=== PATIENT | male | born 1970 | race Caucasian/White ===

== ENCOUNTER → 2017-10-08 16:58 | Outpatient (CLI) | payer MEDICAID, SELFPAY ==
[2017-10-08 18:37] LABS: Absolute Lymphocyte Count 2.45 X10^3/ul (0.83-4.51); Basophil# 0.02 X10^3/uL; Basophil% 0.2 % (0-1); Eosinophil# 0.11 X10^3/uL; Eosinophils% 1.2 % (0-5); Hematocrit 45.6 % (40-54); Hemoglobin 15.4 g/dl (13.0-16.5); Lymphocyte # 2.45 X10^3/ul (4.0); Lymphocyte % 26.3 % (19-41); Mean Corp Hgb Conc 33.8 g/gl (32-36); Mean Corpuscular Hgb 29.7 pg (27.0-32.0); Mean Corpuscular Volume 87.9 fL (80-94); Mean Platelet Vol. 10.5 fl (6.2-12.0); Monocyte# 0.75 X10^3/uL; Monocyte% 8.1 % (0-10); Neutrophil # 5.97 X10^3/uL (2.7-7.7); Neutrophil % 64.1 % (47-70); POSITIVE COUNT NO; POSITIVE DIFFERENTIAL NO; POSITIVE MORPHOLOGY NO; Platelet Count 324 K/mm3 (150-450); RBC Distribution Width CV 13.1 % (11.6-14.6); RBC Distribution Width SD 42.2 fl (35.1-43.9); Red Blood Count 5.19 M/mm3 (4.6-6.2); White Blood Count 9.3 K/mm3 (4.4-11.0)
[2017-10-08 19:11] LABS: ALB/GLOB Ratio 1.1 RATIO (0.9-2.4); AST(SGOT) 22 U/L (15-37); Alanine Aminotransfer ALT/SGPT 43 U/L (16-61); Albumin, Serum 4.1 g/dL (3.2-5.0); Alkaline Phosphatase 92 U/L (45-117); Anion Gap 7 (5-15); BUN 11 mg/dL (7-18); BUN/Creat Ratio 13.8 RATIO (10-20); Calcium,Total 9.3 mg/dL (8.5-10.1); Chloride 101 mmol/L (98-107); EST Glomerular Filtration Rate 111 mL/min (>60); Est Glom Filt Rate - Afr Amer 134 mL/min (>60); Globulin 3.7 g/dL (2.2-4.2); Glucose 83 mg/dL (74-106); Potassium 4.4 mmol/L (3.5-5.1); Protein, Total 7.8 g/dL (6.4-8.2); Sodium Level 139 mmol/L (136-145)
[2017-10-10 09:00] LABS: Hep C Antibodies <0.1 s/co ratio (0.0-0.9)
== END ==
PROVIDERS: Family Provider Family Medicine; PCP Family Medicine; Visit Provider Family Medicine
DX: M13.0 Polyarthritis, unspecified (principal)
CPT/HCPCS: 36415; 80053; 85025; 86803

== ENCOUNTER 2018-09-29 09:39 | Emergency (ER) | payer OTHER, BC, SELFPAY ==
[2018-09-29 09:39] VITALS: BP 143/88; PULSE 86; RESP 14; TEMP 36.6; O2SAT 96; BMI 48.0
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
--- NOTE | 2018-09-29 09:58 | ED.DEP ---
ED Disposition - Plan for ED Patient: Disposition: Home or Assisted Living Instructions: Dental Trauma Prescriptions: Penicillin Vk [Pen-Vee K , V-Cillin K] 250 mg PO 4X/DAY #30 tab Referrals: Giuseppe Banuelos DDS [STAFF PHYSICIAN] - As soon as possible Additional Instructions: Ice for pain and inflammation. Tylenol Motrin for pain. Penicillin to prevent infection. Call follow-up with either the local oral surgeon Dr. Giuseppe Banuelos or Dr. Isidro Burgos a local dentist. Dr. Burgos [phone].
[2018-09-29 10:14] VITALS: PULSE 86; RESP 17; O2SAT 98
== END 2018-09-29 11:17 | disposition home or self-care (01) ==
PROVIDERS: Emergency Provider Emergency Medicine; Family Provider Family Medicine; PCP Family Medicine
DX: S02.5XXA Fracture of tooth (traumatic), initial encounter for closed fracture (principal); W01.198A Fall on same level from slipping, tripping and stumbling with subsequent striking against other object, initial encounter; Y93.89 Activity, other specified; Y92.89 Other specified places as the place of occurrence of the external cause; Y99.0 Civilian activity done for income or pay
CPT/HCPCS: 99283

== ENCOUNTER 2018-11-14 20:05 | Emergency (ER) | payer BC, SELFPAY ==
[2018-11-14 20:05] VITALS: BP 154/86; PULSE 114; RESP 18; TEMP 37.1; O2SAT 95; BMI 49.2
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
[2018-11-14 23:08] VITALS: BP 137/93; PULSE 121; O2SAT 94
[2018-11-14] MEDS: predniSONE 20 MG Tablet 60 MG PO (23:11)
== END 2018-11-14 23:14 | disposition home or self-care (01) ==
PROVIDERS: Emergency Provider Emergency Medicine; Family Provider Family Medicine; PCP Family Medicine
DX: L50.9 Urticaria, unspecified (principal)
CPT/HCPCS: 99283

== ENCOUNTER 2020-12-23 08:02 | Emergency (ER) | payer SELFPAY ==
[2020-12-23 08:03] VITALS: BP 194/108; PULSE 94; RESP 22; TEMP 36.2; O2SAT 96; BMI 54.7
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
[2020-12-23] MEDS: Acetaminophen 500 MG Tablet 1000 MG PO (08:24)
[2020-12-23] MEDS: Diphth,Pertuss(Acell),Tet Vac 0.5 ML Vial IM (08:25)
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
[2020-12-23 09:21] VITALS: PULSE 98; RESP 18; O2SAT 97
== END 2020-12-23 09:22 | disposition home or self-care (01) ==
LOC: ED 08:56
PROVIDERS: Emergency Provider Emergency Medicine; PCP Family Medicine
DX: S06.0X0A Concussion without loss of consciousness, initial encounter (principal); S90.02XA Contusion of left ankle, initial encounter; S81.811A Laceration without foreign body, right lower leg, initial encounter; V29.88XA Motorcycle rider (driver) (passenger) injured in other specified transport accidents, initial encounter; Y93.89 Activity, other specified; Y92.89 Other specified places as the place of occurrence of the external cause; Y99.8 Other external cause status; Z79.1 Long term (current) use of non-steroidal anti-inflammatories (NSAID); Z23 Encounter for immunization
CPT/HCPCS: 70450; 73610; 90471; 90715; 99283

== ENCOUNTER → 2021-05-01 16:30 | Outpatient (CLI) | payer OTHER, SELFPAY ==
[2021-05-01 17:58] LABS: Absolute Lymphocyte Count 2.22 X10^3/uL (0.83-4.51); Absolute Neutrophil Count 7.6 X10^3/uL (2.0-7.7); Basophil# 0.06 X10^3/uL; Basophil% 0.6 % (0-1); Eosinophils% 0.9 % (0-5); Hematocrit 47.4 % (40-54); Hemoglobin 15.1 g/dL (13.0-16.5); Lymphocyte # 2.22 X10^3/ul (0.83-4.51); Lymphocyte % 20.7 % (19-41); Mean Corp Hgb Conc 31.9 g/dL (32-36); Mean Corpuscular Hgb 30.8 pg (27.0-32.0); Mean Corpuscular Volume 96.5 fL (80-94); Mean Platelet Vol. 10.8 fl (6.2-12.0); Monocyte# 0.67 X10^3/uL; Monocyte% 6.3 % (0-10); NRBC Flagged by Analyzer 0 % (0-5); Neutrophil # 7.62 X10^3/uL (2.7-7.7); Neutrophil % 71.1 % (47-70); Platelet Count 254 K/mm3 (150-450); RBC Distribution Width CV 14.4 % (11.6-14.6); RBC Distribution Width SD 50.4 fl (35.1-43.9); Red Blood Count 4.91 M/mm3 (4.6-6.2); White Blood Count 10.7 K/mm3 (4.4-11.0)
[2021-05-01 18:33] LABS: Microalbumin,Random Urine 10.9 mg/L (NO RANGE EST.); Microalbumin:Creatinine Ratio 6.4 mg/g CRE (<30 mg/g CRE)
[2021-05-01 18:38] LABS: ALB/GLOB Ratio 0.6 RATIO (0.9-2.4); AST(SGOT) 52 U/L (15-37); Alanine Aminotransfer ALT/SGPT 84 U/L (16-61); Albumin, Serum 3.1 g/dL (3.2-5.0); Alkaline Phosphatase 134 U/L (45-117); Anion Gap 5 (5-15); BUN 12 mg/dL (7-18); BUN/Creat Ratio 13.4 RATIO (10-20); Calcium,Total 9.4 mg/dL (8.5-10.1); Chloride 103 mmol/L (98-107); Creatinine, Serum 0.89 mg/dL (0.70-1.30); EST Glomerular Filtration Rate 96 mL/min (>60); Est Glom Filt Rate - Afr Amer 116 mL/min (>60); Globulin 4.9 g/dL (2.2-4.2); Glucose 87 mg/dL (74-106); Potassium 4.1 mmol/L (3.5-5.1); Sodium Level 136 mmol/L (136-145)
[2021-05-01 19:02] LABS: Hemoglobin A1c 5.5 % (3.8-5.6)
== END ==
LOC: MFPLAB 16:31
PROVIDERS: PCP Family Medicine; Referring Provider Family Medicine; Visit Provider Family Medicine
DX: I10 Essential (primary) hypertension (principal); I73.9 Peripheral vascular disease, unspecified; R73.01 Impaired fasting glucose
CPT/HCPCS: 36415; 80053; 82043; 82570; 83036; 85025

== ENCOUNTER 2022-01-27 08:16 | Emergency (ER) | payer BC, SELFPAY ==
[2022-01-27 08:17] VITALS: BP 177/97; PULSE 114; RESP 22; TEMP 36.6; O2SAT 95; BMI 54.1
[2022-01-27 08:29] VITALS: O2SAT 96
--- NOTE | 2022-01-27 09:11 | RAD_ITS ---
STUDY: X-RAY CHEST REASON FOR EXAM: Male, 51 years old. sob TECHNIQUE: Single AP portable view of the chest. COMPARISON: JANUARY 02, 2016 FINDINGS: The lungs are clear and expanded. There is no demonstrated pleural abnormality. Normal size heart. Normal mediastinum and rai. Normal visualized pulmonary arteries. Normal visualized aortic arch and descending thoracic aorta. Normal visualized thoracic spine. Normal visualized ribs, clavicles, and shoulders. There is no demonstrated abnormality of the visualized soft tissue structures of the upper abdomen. RAD/Chest 1 View (Portable) IMPRESSION: Normal x-ray examination of the chest. Electronically Signed: Álvaro Botello MD at 9:32 EDT ,
--- NOTE | 2022-01-27 09:18 | EDS_ITS ---
HPI History of Present Illness Chief Complaint: Shortness of Breath Narrative Narrative: 51-year-old male here with a chief complaint of shortness of breath. Past medical history significant for hypertension, polysubstance abuse including cocaine methamphetamine [facility] Medical History Lung abnormality Allergy/AdvReac Type Severity Reaction Status Date / Time Penicillins [PCN] Allergy Hives Verified 01/27/22 08:17 Social History Smoking Status: Never smoker EXAM Physical Exam Const Vital Signs: 01/27/22 08:17 01/27/22 08:29 Temperature 98 F Temperature Source Temporal Pulse Rate 114 H Respiratory Rate 22 H Respiratory Effort Non-Labored Respiratory Depth Normal Respiratory Pattern Normal Blood Pressure 177/97 H Blood Pressure Mean 123 Pulse Ox 95 Oxygen Delivery Method Room Air Room Air Discharge Plan Triage Chief Complaint: Shortness of Breath ED Provider: Hira Jain Dx/Rx/DC Orders Primary Care Provider: Chau Hyman Referrals: Chau Hyman MD [Primary Care Provider] -
--- NOTE | 2022-01-27 09:26 | EX.ED.VIS.UR ---
HPI HPI - URI History of Present Illness Chief Complaint: Shortness of Breath Informant: patient Onset/Context/Timing Onset: Weeks Context: Gradual Onset Timing: Continuous Current Severity: Mild Maximum Severity: Mild Associated Symptoms Associated Symptoms: Positive for Nasal Congestion and Productive Cough Narrative Narrative: 51-year-old male past medical history of obesity. Isolated URI symptoms, drainage, sore throat and earaches. Over the last 6 weeks. Initially they tried 2 different courses of antibiotics including a Z-Filiberto. He also has had bilateral ear tubes placed. He does not feel he is getting any better. He is wheezing. He does not smoke. Denies any fever. Denies any chest pain. He does have a cough of yellow sputum. No hemoptysis. Prior similar symptoms: Yes Recent Illness/Hospitalization: No ROS ROS ED ROS Narrative Cough. Sore throat. Earache. Nasal drainage. Review of Systems ROS Unobtainable: Denies due to encephalopathy Constitutional Constitutional ED: Denies chills or fever(s) Eyes Eyes: Denies blurry vision ENT ENT ED: Reports ear pain, rhinorrhea and sore throat Cardiovascular Cardiovascular: Denies chest pain or palpitations Respiratory/Chest Respiratory/Chest: Reports cough, dyspnea and sputum Gastrointestinal Gastrointestinal: Denies abdominal pain, constipation or diarrhea Genitourinary Genitourinary ED: Denies dysuria or hematuria Musculoskeletal Musculoskeletal: Denies arthralgias or back pain Integumentary Denies abscess or Abrasions Neurologic Neurologic: Denies headache(s) Psychiatric Psychiatric: Denies anxiety or depression Endocrine Endocrinology: Denies cold intolerance Hematologic/Lymphatic Hematologic/Lymphatic: Denies easy bleeding Allergic/Immunologic Allergic/Immunologic ED: Denies mouth swelling PFSH PFSH Medical History Lung abnormality Home Medications prednisone 20 mg tablet 40 mg PO DAILY 10 days #20 tabs 01/27/22 [Rx Last Taken Unknown] Allergy/AdvReac Type Severity Reaction Status Date / Time Penicillins [PCN] Allergy Hives Verified 01/27/22 08:17 Social History Smoking Status: Never smoker EXAM Physical Exam Narrative Exam Narrative: 51-year-old male no acute distress vital signs are stable afebrile. H EENT exam TMs appear to be erythematous and dull peers to be chronic. Canals are unremarkable. Posterior pharynx moist pink drainage. No exudate. No trouble swallowing. Neck nontender no lymphadenopathy. Lungs coarse bilaterally. Few scattered wheezes. No rales or rhonchi. Heart regular rhythm rate about 110 no murmur. Chest were nontender. Abdomen soft nontender. Obese. Moving all 4 extremities. Calves nontender no edema no cords neurologically is awake alert Const Vital Signs: 01/27/22 08:17 01/27/22 08:29 01/27/22 09:50 Temperature 98 F Temperature Source Temporal Pulse Rate 114 H 72 Respiratory Rate 22 H 18 Respiratory Effort Non-Labored Respiratory Depth Normal Respiratory Pattern Normal Normal Blood Pressure 177/97 H Blood Pressure Mean 123 Pulse Ox 95 Oxygen Delivery Method Room Air Room Air Positive well nourished, well developed and obese; Negative for cachectic or contractures General Appearance ED: well developed; Negative for cachectic or contractures Nutritional Appearance: obese; Negative for cachectic HEENT Reports moist mucous membranes; Denies dry mucous membranes normocephalic and atraumatic Face and Sinus: Negative for sinus tenderness or maxillary instability Mouth ED: No dry mucous membranes Mouth: No dry mucous membranes Throat: posterior oropharynx normal Eyes PERRL and EOMs intact bilaterally General Eye ED: Negative for pale conjunctiva or scleral icterus Neck no lymphadenopathy, supple, no meningeal signs and no JVD Resp normal respiratory effort and clear to auscultation bilaterally Effort and Inspection: Negative for retractions Auscultation: Negative for rales, rhonchi or wheezes Cardio Rate: tachycardic; Negative for regular rate Rhythm: regular rhythm GI non-tender, non-distended and no masses Inspection: Negative for abdominal distention Auscultation: normoactive bowel sounds Palpation: soft; Negative for tender, guarding, hepatomegaly or splenomegaly Back/Spine no CVA tenderness General Back: Negative for CVA tenderness Cervical Spine: Negative for cervical spine tenderness Thoracic Spine / Upper Back: Negative for thoracic spinal tenderness Lumbar Spine / Lower Back: Negative for lumbar spinal tenderness Sacrum: Negative for tenderness Extremity normal to inspection and full ROM General Extremety ED: Negative for cyanosis or tenderness General Extremity: Negative for cyanosis Neuro oriented x3 Sensorium / Orientation: alert, oriented to person, oriented to place and oriented to time Motor Exam: strength 5/5 throughout Psych mental status grossly normal Appearance: Negative for other Attitude: No agitated Mood & Affect: Negative for depressed Skin General Skin Exam: Negative for jaundice Lesions: no lesions Rashes: no rashes Trauma: Negative for abrasion MDM MDM MDM Narrative Medical decision making narrative: Gentleman with URI symptoms but has had this for 6 weeks. Has had at least 2 rounds of antibiotics. Recent ear tubes. He is wheezing. Chest x-ray and COVID test to be obtained. Patient be treated with aerosols and steroids. Repeat exam patient is doing well at 11:45 AM. I do not think he needs any further antibiotics he has been having the symptoms for about a month. This may be seasonal allergies. He is also already been on 2 courses of antibiotics. He will be placed on prednisone for 10 days and follow-up with his primary care physician. He already has inhalers at home. He is doing better after the aerosol treatment and steroids here. Lab Data Attestation: I reviewed the patient's lab results. Radiography Diagnostic Testing: Clinical Impression(s) from Imaging Studies Chest X-Ray 01/27/22 09:11 IMPRESSION: Normal x-ray examination of the chest. Electronically Signed: Álvaro Botello MD at 9:32 EDT Reading Location ID and State: [facility] / [place] , Service support , Discharge Plan Triage Chief Complaint: Shortness of Breath ED Provider: Hira Jain Dx/Rx/DC Orders Clinical Impression: Wheezing Instructions: ED Bronchitis with Wheezing (Adult) Prescriptions: New prednisone 20 mg tablet 40 mg PO DAILY 10 Days Qty: 20 0RF Primary Care Provider: Chau Hyman Referrals: Chau Hyman MD [Primary Care Provider] - 1-2 Weeks Activity Restrictions/Additional Instructions: Continue use your inhaler as needed. Daily prednisone for the next 10 days. Start tomorrow. You were given a dose here. Follow-up with your doctor in 1 to 2 weeks to ensure you are improving. Disposition Disposition: Home, Self Care
[2022-01-27] MEDS: predniSONE 20 MG Tablet 60 MG PO (09:42)
[2022-01-27] MEDS: Albuterol 2.5 MG/3 ML VIAL.NEB. INHALATION (09:45)
[2022-01-27] MEDS: Ipratropium/Albuterol Sulfate 3 ML AMPUL.NEB INHALATION (09:45)
[2022-01-27 09:50] VITALS: PULSE 72; RESP 18
--- NOTE | 2022-01-27 09:51 | CPS ---
wheezing in the neck, no wheezes in the lungs.
[2022-01-27 11:56] VITALS: PULSE 105; RESP 20; O2SAT 94
== END 2022-01-27 11:56 | disposition home or self-care (01) ==
PROVIDERS: Emergency Provider Emergency Medicine; PCP Family Medicine; Visit Provider Emergency Medicine
DX: R06.2 Wheezing (principal); R06.02 Shortness of breath; J02.9 Acute pharyngitis, unspecified; E66.9 Obesity, unspecified; R09.3 Abnormal sputum
CPT/HCPCS: 71045; 87428; 94640; 99283

== ENCOUNTER 2024-05-12 09:48 | Inpatient (IN) | payer SELFPAY ==
[2024-05-12] VITALS (9 sets, daily range): BP systolic 130–157; BP diastolic 77–106; PULSE 94–102; RESP 16–24; TEMP 36.7–36.8; O2SAT 93–98; BMI 49.5
--- NOTE | 2024-05-12 10:06 | RAD_ITS ---
STUDY: X-RAY CHEST REASON FOR EXAM: Male, 53 years old. Chest pain TECHNIQUE: PA and lateral views of the chest. COMPARISON: Comparison is made with prior study dated January 27, 2022. FINDINGS: EKG electrodes are seen. There is evidence of vascular congestion and CHF. There is no demonstrated pleural abnormality. There is mild cardiac enlargement. Normal mediastinum and rai. Normal visualized pulmonary arteries. There is atherosclerotic tortuosity of the aortic arch and descending thoracic aorta. Normal visualized thoracic spine. Normal visualized ribs, clavicles, and shoulders. There is no demonstrated abnormality of the visualized soft tissue structures of the upper abdomen. RAD/Chest PA and Lateral IMPRESSION: Mild cardiomegaly. History congestion and CHF. Electronically Signed: Frandy Taylor MD at 10:50 EDT ,
[2024-05-12] MEDS: Ipratropium/Albuterol Sulfate 3 ML AMPUL.NEB INHALATION (10:13)
--- NOTE | 2024-05-12 10:15 | EKG12_ITS ---
Test Reason : SOB Blood Pressure : / mmHG Vent. Rate : 099 BPM Atrial Rate : 099 BPM P-R Int : 156 ms QRS Dur : 152 ms QT Int : 406 ms P-R-T Axes : 025 070 001 degrees QTc Int : 521 ms Normal sinus rhythm Left bundle branch block Abnormal ECG Confirmed by BAKARI PRADO, ELSA ([id number]), staff editor LAYA BOOGIE ([id number]) on 05/13/2024 1:55:44 PM Referred By: Confirmed By:ELSA VILLEGAS MD
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
[2024-05-12 10:22] LABS: Absolute Lymphocyte Count 1.72 X10^3/uL (0.83-4.51); Absolute Neutrophil Count 9.5 X10^3/uL (2.0-7.7); Basophil# 0.08 X10^3/uL; Basophil% 0.7 % (0-1); Eosinophil# 0.19 X10^3/uL; Eosinophils% 1.6 % (0-5); Hematocrit 47.1 % (40-54); Lymphocyte # 1.72 X10^3/ul (0.83-4.51); Lymphocyte % 14.2 % (19-41); Mean Corp Hgb Conc 31.8 g/dL (32-36); Mean Corpuscular Hgb 29.9 pg (27.0-32.0); Mean Corpuscular Volume 93.8 fL (80-94); Mean Platelet Vol. 9.7 fl (6.2-12.0); Monocyte# 0.63 X10^3/uL; Monocyte% 5.2 % (0-10); NRBC Flagged by Analyzer 0 % (0-5); Neutrophil # 9.45 X10^3/uL (2.7-7.7); Platelet Count 372 K/mm3 (150-450); RBC Distribution Width CV 16.1 % (11.6-14.6); RBC Distribution Width SD 55.2 fl (35.1-43.9); Red Blood Count 5.02 M/mm3 (4.6-6.2); White Blood Count 12.1 K/mm3 (4.4-11.0)
[2024-05-12] MEDS: predniSONE 20 MG Tablet 60 MG PO (10:23)
[2024-05-12 10:34] LABS: Anion Gap 4 (5-15); BUN 8 mg/dL (7-18); BUN/Creat Ratio 8.8 RATIO (10-20); Calcium,Total 9.4 mg/dL (8.5-10.1); Chloride 104 mmol/L (98-107); EST Glomerular Filtration Rate 94 mL/min (>60); Est Glom Filt Rate - Afr Amer 114 mL/min (>60); Estimated Creatinine Clearance 146.23 ml/min; Glucose 139 mg/dL (74-106); Potassium 4.4 mmol/L (3.5-5.1); Sodium Level 137 mmol/L (136-145); Troponin-I HS (w/2H Reflex) 20 pg/mL (3.0-78.0)
--- NOTE | 2024-05-12 11:34 | PCM.HP.STD ---
HPI - General General Date of Admission: 05/12/24 Date of Service: 05/12/24 Chief Complaint: shortness of breath HPI Narrative VERONICA MONTE, is a 53 M with a PMH as outlined who presents via the ED on 05/12/2024 with a complaint of shortness of breath. Patient states he felt acutely short of breath. Shortness of breath was worsened by exacerbation and relieved by rest. He denied any orthopnea and still sleeps with only 1 pillow. He had an associated cough and a fever. He said his cough was productive and he coughed to the point where he vomited. He denied any chest pain, dizziness or lightheadedness, nausea or vomiting. 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 He denies any history of smoking has not been diagnosed with COPD or any heart issues. Review of systems otherwise negative. Vitals in the ED were BP of 139/99, NE of 99, RR of 18 and oxygen sats of 98% on room air. CBC showed Hb of 15, wbc of 12.1 and platelets of 372. CHemistry showed sodium of 137, potassium of 4.4 and bicarb of 29. Cr was 0.9. Initial troponin was 20. BNP was 788. EKG showed no acute ST changes and CXR showed mild cardiomegaly with vascular congestion and CHF. He has been admitted to be managed for acute exacerbation of heart failure with unknown EF. [facility] Medical History Lung abnormality Home Medications ?Medication ?Instructions ?Recorded ?Last Taken ?Type lisinopril 20 mg tablet 20 mg PO DAILY 05/12/24 Unknown History Allergy/AdvReac Type Severity Reaction Status Date / Time Penicillins (PCN) Allergy Hives Verified 05/12/24 09:49 Social History Smoking Status: Never smoker ROS Constitutional Constitutional: Reports chills, fatigue, fever(s), malaise and weakness; Denies anorexia Eyes Eyes: Denies change in vision ENT HEENT: Denies dysphagia, headache(s), sinus pressure or sore throat Cardiovascular Cardiovascular: Reports dyspnea on exertion and orthopnea; Denies chest pain, claudication, edema, lightheadedness or palpitations Respiratory/Chest Respiratory/Chest: Reports cough, dyspnea, productive cough, shortness of breath at rest and shortness of breath with exertion; Denies excessive phlegm production, hemoptysis or wheezing Gastrointestinal Gastrointestinal: Denies abdominal pain, constipation, diarrhea, dyspepsia, melena, nausea or vomiting Genitourinary Genitourinary: Denies burning urination or dysuria Musculoskeletal Musculoskeletal: Denies arthralgias Neurologic Neurologic: Denies confusion, dizziness, focal weakness, headache(s), numbness, seizures or syncope Psychiatric Psychiatric: Denies anxiety or depression Vital Signs Vital Signs Vital Signs: 05/12/24 09:49 05/12/24 10:07 05/12/24 10:15 Temperature 98.3 F Temperature Source Oral Pulse Rate 101 H 95 Respiratory Rate 24 H 16 Respiratory Effort Respiratory Depth Respiratory Pattern Normal Blood Pressure 157/106 H Blood Pressure Mean 123 Pulse Ox 96 Oxygen Delivery Method Room Air Room Air 05/12/24 10:49 05/12/24 10:50 05/12/24 11:00 Temperature Temperature Source Pulse Rate 102 H 99 Respiratory Rate 20 H 18 Respiratory Effort Short of Breath Respiratory Depth Normal Respiratory Pattern Tachypnea Blood Pressure 145/88 H 139/99 H Blood Pressure Mean 107 112 Pulse Ox 95 98 Oxygen Delivery Method Room Air Room Air Weight Weight: 345 lb 6.4 oz Body Mass Index (BMI) 49.5 Physical Exam Const alert, oriented x3 and no apparent distress General Appearance: cooperative HEENT normocephalic, head/scalp atraumatic, hearing grossly normal bilaterally and moist oral mucous membranes Mouth: oral and palatal mucosa normal Eyes PERRL, EOMs intact bilaterally and conjunctivae normal Neck no lymphadenopathy and supple Resp Resp Narrative: Moderately diminished breath sounds bibasilarly. No wheezes or crackles. On room air. Cardio regular rate, regular rhythm, S1 normal heart sound, S2 normal heart sound and no murmurs GI normal to inspection, nondistended, normoactive bowel sounds, soft to palpation, non-tender and non-distended Extremity normal to inspection, full ROM and no clubbing, cyanosis or edema Neuro oriented x3, CN's II-XII intact bilaterally, moves all extremities and no focal motor deficits Sensorium / Orientation: awake and alert Motor Exam: strength 5/5 throughout Psych affect normal Results Lab / Micro Data 05/12/24 10:05 05/12/24 10:05 Labs: Laboratory Results - last 24 hr 05/12/24 10:05: WBC 12.1 H, RBC 5.02, Hgb 15.0, Hct 47.1, MCV 93.8, MCH 29.9, MCHC 31.8 L, RDW Std Deviation 55.2 H, RDW Coeff of Sean 16.1 H, Plt Count 372, MPV 9.7, Immature Gran % (Auto) 0.300, Neut % (Auto) 78.0 H, Lymph % (Auto) 14.2 L, [place] % (Auto) 5.2, Eos % (Auto) 1.6, Baso % (Auto) 0.7, Absolute Neuts (auto) 9.5 H, Absolute Lymphs (auto) 1.72, Nucleated RBC % 0, Sodium 137, Potassium 4.4, Chloride 104, Carbon Dioxide 29.0, Anion Gap 4 L, BUN 8, Creatinine 0.90, Estim Creat Clear Calc 146.23, Est GFR (MDRD) Af Amer 114, Est GFR (MDRD) Non-Af 94, BUN/Creatinine Ratio 8.8 L, Glucose 139 H, Calcium 9.4, Troponin I High Sens 20, B-Natriuretic Peptide 788.0 H Micro: Microbiology 05/12/24 10:13 Mucosa - Nose SARS-CoV-2, Influenza & RSV (PCR) - Final Imaging Radiology Impression Chest X-Ray 05/12/24 10:06 IMPRESSION: Mild cardiomegaly. History congestion and CHF. Electronically Signed: Frandy Taylor MD at 10:50 EDT , Assessment & Plan Assessment/Plan (1) Dyspnea on exertion: (2) Congestive heart failure: PLAN: Plan #Acute heart failure of unknown EF Admit to PCU Chest x-ray showed evidence of vascular congestion. BNP elevated at 788. No baseline in the system. He does not have any known heart failure. Troponins x 2 were negative. Start diuresis with IV Lasix 40 mg twice daily. Monitor intake and output. Fluid restriction 1500 cc daily. Respiratory panel negative for COVID, flu and RSV Oxygen as needed and titrate to maintain saturation above 90%. 2D echo ordered. #Probable pneumonia Patient also complains that he had a fever at home with associated cough productive of sputum. He did not have a fever whilst here but WBC is mildly elevated at 12.1. Will check urine for strep and Legionella. Get sputum culture. He was given IV doxycycline in the ED. Will continue antibiotics with IV ceftriaxone and azithromycin. Breathing treatments bronchodilators. #Super morbid obesity: BMI is 49.1. Complicates acute care, expected recovery and prognosis. 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 Will benefit from pulmonology referral on outpatient basis on discharge. DVT prophylaxis: Lovenox CODE STATUS: Full code Patient counseled extensively about different types of CODE STATUS including full code, DNR CCA and DNR CCA. Patient elects to be full code. Total [id number] time 17 minutes. Charges/Coding Visit Charges Inpatient E&M: 93909 Init Hosp L3 Procedures Hospitalists Procedures: 77528 Advncd Care Plan 30 Min
[2024-05-12] MEDS: Furosemide 40 MG/4 ML Vial IV ×2 (11:46→17:41)
[2024-05-12] MEDS: Doxycycline 100 MG CAPSULE PO (11:46)
[2024-05-12 12:13] LABS: Reflex Troponin-HS? (from REC) Y
--- NOTE | 2024-05-12 12:49 | ECHOD_ITS ---
Reason For Study: DYSPNEA Procedure This was a 2D Doppler, Color Flow transthoracic echocardiogram. The study was technically difficult. Contrast injection was performed. Exam performed portable in patient room. Left Ventricle Mildly dilated left ventricle. The estimated ejection fraction is 35 %. There is evidence of diastolic dysfunction. Base of the LV is lauren well. Rest of the LV is severely hypokinetic to akinetic. Right Ventricle Normal RV size. Normal systolic function. Atria The left atrium is not well visualized. The right atrium is not well visualized. No doppler evidence for ASD. Mitral Valve There is no mitral valve stenosis. No mitral valve insufficiency. Tricuspid Valve There is no tricuspid stenosis. Unable to estimate RV systolic pressure due to inadequate jet, pulmonary artery pressure probably normal. Aortic Valve Trisinus/trileaflet aortic valve. There is no aortic stenosis. No aortic valve insufficiency. Pulmonic Valve There is no pulmonic valvular stenosis. No pulmonic valve insufficiency. Great Vessels Normal aortic root. Pericardium/Pleural No pericardial effusion. Medication Diluted definity 2ml given slow IV push to enhance endocardial definition. MMode/2D Measurements & Calculations Ao root diam: 3.0 cm LAV(MOD-sp4): 63.1 ml LVAd ap4: 48.3 cm2 LVLd ap4: 9.3 cm EDV(MOD-sp4): 202.7 ml EDV(sp4-el): 212.3 ml LVAs ap4: 41.8 cm2 LVLs ap4: 8.8 cm ESV(MOD-sp4): 159.9 ml ESV(sp4-el): 167.6 ml EF(MOD-sp4): 21.1 % EF(sp4-el): 21.1 % SV(MOD-sp4): 42.8 ml SV(sp4-el): 44.7 ml LA A4 area: 19.5 cm2 LA dimension(2D): 4.3 cm RA A4 area: 14.3 cm2 Time Measurements MV dec time: 0.02 sec Doppler Measurements & Calculations MV E max angel: 107.9 cm/sec Lat Peak E' Angel: 9.2 cm/sec Med Peak E' Angel: 13.9 cm/sec MV A max angel: 104.1 cm/sec E/E' lat: 11.8 E/E' med: 7.8 MV E/A: 1.0 MV dec slope: 4810 cm/sec2 Ao V2 max: 107.2 cm/sec LV V1 max: 122.5 cm/sec Ao max P.7 mmHg LV V1 max P.0 mmHg Ao V2 mean: 71.8 cm/sec LV V1 mean P.3 mmHg Ao mean P.4 mmHg LV V1 mean: 84.7 cm/sec Ao V2 VTI: 15.5 cm LV V1 VTI: 20.4 cm AV (velocity ratio): 1.3 ECHO/Echo Complete W/ Contrast Interpretation Summary The estimated ejection fraction is 35 %. There is evidence of diastolic dysfunction. Base of the LV is lauren well. Rest of the LV is severely hypokinetic to a kinetic. Ordering Physician: Felicia Gupta Referring Physician: CINTIA PCP Performed By: Criss Lassiter RCS
[2024-05-12 12:57] LABS: Troponin-I HS 19 pg/mL (3.0-78.0)
[2024-05-12 16:51] LABS: Troponin-I HS 13 pg/mL (3.0-78.0)
[2024-05-12] MEDS: 0.9% Saline Lock 10 ML Syringe IV (17:41)
[2024-05-13 03:32] VITALS: BP 130/89; PULSE 87; RESP 16; TEMP 36.6; O2SAT 96
[2024-05-13 06:03] LABS: Absolute Lymphocyte Count 2.02 X10^3/uL (0.83-4.51); Absolute Neutrophil Count 8.4 X10^3/uL (2.0-7.7); Basophil# 0.05 X10^3/uL; Basophil% 0.4 % (0-1); Eosinophil# 0.06 X10^3/uL; Eosinophils% 0.5 % (0-5); Hematocrit 45.4 % (40-54); Hemoglobin 14.3 g/dL (13.0-16.5); Lymphocyte # 2.02 X10^3/ul (0.83-4.51); Lymphocyte % 18.1 % (19-41); Mean Corp Hgb Conc 31.5 g/dL (32-36); Mean Corpuscular Hgb 29.9 pg (27.0-32.0); Mean Corpuscular Volume 94.8 fL (80-94); Mean Platelet Vol. 9.8 fl (6.2-12.0); Monocyte# 0.62 X10^3/uL; Monocyte% 5.6 % (0-10); NRBC Flagged by Analyzer 0 % (0-5); Neutrophil # 8.38 X10^3/uL (2.7-7.7); Platelet Count 359 K/mm3 (150-450); RBC Distribution Width CV 16.2 % (11.6-14.6); RBC Distribution Width SD 56.4 fl (35.1-43.9); Red Blood Count 4.79 M/mm3 (4.6-6.2); White Blood Count 11.2 K/mm3 (4.4-11.0)
[2024-05-13 06:40] LABS: Anion Gap 6 (5-15); BUN 12 mg/dL (7-18); BUN/Creat Ratio 13.6 RATIO (10-20); Calcium,Total 9.2 mg/dL (8.5-10.1); Chloride 104 mmol/L (98-107); Creatinine, Serum 0.88 mg/dL (0.70-1.30); EST Glomerular Filtration Rate 97 mL/min (>60); Est Glom Filt Rate - Afr Amer 117 mL/min (>60); Estimated Creatinine Clearance 149.51 ml/min; Glucose 113 mg/dL (74-106); Potassium 3.7 mmol/L (3.5-5.1); Sodium Level 139 mmol/L (136-145)
[2024-05-13 08:08] VITALS: O2SAT 96
[2024-05-13 09:41] VITALS: BP 131/79; PULSE 93; RESP 18; TEMP 36.4; O2SAT 95
[2024-05-13] MEDS: Ceftriaxone 1 GM/50 ML BAG IV (09:42)
[2024-05-13] MEDS: Lisinopril 20 MG Tablet PO (09:43)
[2024-05-13] MEDS: Enoxaparin 40 MG/0.4 ML Syringe SC (09:52)
[2024-05-13] MEDS: Furosemide 40 MG/4 ML Vial IV (09:55)
--- NOTE | 2024-05-13 10:20 | PN_ITS ---
Subjective Subjective Patient seen and examined. He had no complaints and felt well. His breathing had improved. Review of systems is otherwise negative. He is on room air. Review of systems is otherwise negative. Objective Data Objective Data Vital Signs: Vital Signs Temp Pulse Resp BP Pulse Ox O2 Del Method 97.6 F L 93 18 131/79 H 95 Room Air 05/13/24 09:41 05/13/24 09:41 05/13/24 09:41 05/13/24 09:41 05/13/24 09:41 05/13/24 09:41 Oxygen Delivery Method Room Air Weight: 345 lb 3.902 oz Body Mass Index (BMI) 49.5 Intake & Output: Intake and Output for Last 24 Hours 05/11/24 05/12/24 05/13/24 23:59 23:59 23:59 Intake Total 680 / 680 50 / 50 Output Total 2575 / 2575 Balance -1895 / -1895 50 / 50 Lab / Micro Data 05/13/24 05:47 05/13/24 05:47 Labs: Laboratory Results - last 24 hr 05/12/24 10:05: WBC 12.1 H, RBC 5.02, Hgb 15.0, Hct 47.1, MCV 93.8, MCH 29.9, M CHC 31.8 L, RDW Std Deviation 55.2 H, RDW Coeff of Sean 16.1 H, Plt Count 372, MPV 9.7, Immature Gran % (Auto) 0.300, Neut % (Auto) 78.0 H, Lymph % (Auto) 14.2 L, [place] % (Auto) 5.2, Eos % (Auto) 1.6, Baso % (Auto) 0.7, Absolute Neuts (auto) 9.5 H, Absolute Lymphs (auto) 1.72, Nucleated RBC % 0, Sodium 137, Potassium 4.4, Chloride 104, Carbon Dioxide 29.0, Anion Gap 4 L, BUN 8, Creatinine 0.90, Estim Creat Clear Calc 146.23, Est GFR (MDRD) Af Amer 114, Est GFR (MDRD) Non-Af 94, BUN/Creatinine Ratio 8.8 L, Glucose 139 H, Calcium 9.4, Troponin I High Sens 20, B-Natriuretic Peptide 788.0 H 05/12/24 12:20: Troponin I High Sens 19 05/12/24 16:00: Troponin I High Sens 13 05/13/24 05:47: WBC 11.2 H, RBC 4.79, Hgb 14.3, Hct 45.4, MCV 94.8 H, MCH 29.9, MCHC 31.5 L, RDW Std Deviation 56.4 H, RDW Coeff of Sean 16.2 H, Plt Count 359, MPV 9.8, Immature Gran % (Auto) 0.400, Neut % (Auto) 75.0 H, Lymph % (Auto) 18.1 L, [place] % (Auto) 5.6, Eos % (Auto) 0.5, Baso % (Auto) 0.4, Absolute Neuts (auto) 8.4 H, Absolute Lymphs (auto) 2.02, Nucleated RBC % 0, Sodium 139, Potassium 3.7, Chloride 104, Carbon Dioxide 30.0, Anion Gap 6, BUN 12, Creatinine 0.88, Estim Creat Clear Calc 149.51, Est GFR (MDRD) Af Amer 117, Est GFR (MDRD) Non-Af 97, BUN/Creatinine Ratio 13.6, Glucose 113 H, Calcium 9.2 Micro: Microbiology 05/12/24 17:45 Urine, Clean Catch Legionella Antigen - Final 05/12/24 17:45 Urine, Clean Catch Streptococcus pneumoniae Antigen (M - Final 05/12/24 10:13 Mucosa - Nose SARS-CoV-2, Influenza & RSV (PCR) - Final Radiography Diagnostic Testing: Radiology Impression Chest X-Ray 05/12/24 10:06 IMPRESSION: Mild cardiomegaly. History congestion and CHF. Electronically Signed: Frandy Taylor MD at 10:50 EDT , Physical Exam Const alert, oriented x3 and no apparent distress Constitutional Narrative: obese General Appearance: cooperative HEENT normocephalic, head/scalp atraumatic, hearing grossly normal bilaterally and moist oral mucous membranes Eyes PERRL, EOMs intact bilaterally and conjunctivae normal Neck no lymphadenopathy and supple Lymph Lymphatic: no lymphadenopathy noted and no lymphedema noted Resp Resp Narrative: Moderately diminished breath sounds bibasilarly. No wheezes or crackles. On room air. Cardio regular rate, regular rhythm, S1 normal heart sound, S2 normal heart sound and no murmurs GI normal to inspection, nondistended, normoactive bowel sounds, soft to palpation, non-tender and non-distended Extremity normal to inspection, full ROM, normal capillary refill and no clubbing, cyanosis or edema General Extremity: no tenderness to palpation of joints or extremities Skin General Skin Exam: no breakdown and turgor normal Neuro oriented x3, CN's II-XII intact bilaterally, moves all extremities and no focal motor deficits Sensorium / Orientation: awake and alert Motor Exam: strength 5/5 throughout Psych thought process normal, cooperative and affect normal Appearance: appropriate Assessment & Plan Assessment/Plan (1) Dyspnea on exertion: (2) Congestive heart failure: PLAN: Plan #Acute systolic and diastolic heart failure * feels much better today. He remains on room air. * Chest x-ray showed evidence of vascular congestion. BNP elevated at 788. No baseline in the system. He does not have any known heart failure. * Troponins x 2 were negative. * on IV lasix 40mg bid. * In cumulative negative balance by 1.845L. * Monitor intake and output. Fluid restriction 1500 cc daily. * Respiratory panel negative for COVID, flu and RSV * Oxygen as needed and titrate to maintain saturation above 90%. * 2D echo done showed EF of 35% with evidence of diastolic dysfunction and base of the left ventricle lauren well but the rest of the left ventricle is severely hypokinetic to akinetic * IV Lasix switched to p.o. Lasix. Discussed with cardiology and will place a consult for cardiology. Patient to have cardiac cath done on Thursday to rule out any ischemic cardiomyopathy. * #Probable pneumonia * Patient also complained that he had a fever at home with associated cough productive of sputum. He did not have a fever whilst here but WBC is mildly elevated at 12.1. * urine for strep and Legionella antigens negative. Sputum culture pending * On IV ceftriaxone and azithromycin. * breathing treatment with bronchodilators. * #Super morbid obesity: BMI is 49.1. Complicates acute care, expected recovery and prognosis. 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 * Will benefit from pulmonology referral on outpatient basis on discharge. * DVT prophylaxis: Lovenox CODE STATUS: Full code * Charges/Coding Visit Charges Inpatient E&M: 65875 Subs Hosp L2
--- NOTE | 2024-05-13 10:24 | CASEMGMT ---
Patient is listed as self pay. This AVI and AVI Winston met with patient. Introduced self and role at [facility]. Patient stated he just started a new job so his insurance will not start for 30 days. Patient said he does not take medication on a regular basis as he does not have a primary care doctor. AVI provided patient with Nichol Sheth information, [facility] financial assistance, and prescription assistance programs. SW did talk with patient about d/c medications. Patient said depending on how much they cost he may be able to pay for them. AVI told patient that RN JAHAIRA and AVI can follow and if the meds are too much [facility] does have a program where we can assist patient's once a year with d/c medications. Patient denied any further needs. Samanta BECK
[2024-05-13] MEDS: Azithromycin 500 MG in Dextrose 5%-Water (250mL Bag) 250 ML 250 MG IV (11:04)
--- NOTE | 2024-05-13 12:53 | CASEMGMT ---
LELAND CAMPO Assessment Face to Face with patient for initial transition planning/care coordination assessment. LELAND CAMPO introduced self and role at [facility], pt voices understanding. Pt is A&Ox4 and is resting comfortably in bed and is calm. Care providers, pharmacy, and demographics verified. Admitting dx: Acute HF LACE Strata: 2 PCP: No PCP. Provider list given. See SW note Specialists: Denies Preferred Pharmacy: [facility] Insurance: SP. See SW note Prescription Benefit: None. Pt has been educated about options. See SW note. Pt may opt into utilizing [facility] Rx Program at time of DC LNOK: Pt son (17 y/o). Denies wanting to add anyone to his chart Living Arrangements: Pt lives with his son in a split level home with a flat entrance ADLs/IADLs: Ind Transportation: Self, Sister. DME: Denies All DME uses or needs HHC/SNF: Denies history or needs Pt?s goal: Home Plan: Home no needs. 6-click is 24. Pt denies HHC, OP Tx, SNF, CCN/ Pt link. Follow for Rx costs at time of DC. Mansi Burgos RN, CM
[2024-05-13 15:41] VITALS: BP 115/49; PULSE 91; RESP 18; TEMP 36.4; O2SAT 95
[2024-05-13] MEDS: Furosemide 40 MG Tablet PO (16:43)
[2024-05-13] MEDS: Ipratropium/Albuterol Sulfate 3 ML AMPUL.NEB INHALATION (19:31)
[2024-05-13 19:32] VITALS: PULSE 84; RESP 16
[2024-05-13 21:13] VITALS: BP 106/75; PULSE 86; RESP 14; TEMP 36.6; O2SAT 94
[2024-05-14] VITALS (7 sets, daily range): BP systolic 104–118; BP diastolic 58–87; PULSE 83–100; RESP 14–20; TEMP 36.4–37.1; O2SAT 94–99
[2024-05-14 07:17] LABS: Absolute Lymphocyte Count 2.59 X10^3/uL (0.83-4.51); Absolute Neutrophil Count 5.5 X10^3/uL (2.0-7.7); Anion Gap 6 (5-15); BUN 16 mg/dL (7-18); BUN/Creat Ratio 20.1 RATIO (10-20); Basophil# 0.07 X10^3/uL; Basophil% 0.8 % (0-1); Calcium,Total 9.2 mg/dL (8.5-10.1); Chloride 103 mmol/L (98-107); EST Glomerular Filtration Rate 109 mL/min (>60); Eosinophil# 0.31 X10^3/uL; Eosinophils% 3.4 % (0-5); Est Glom Filt Rate - Afr Amer 131 mL/min (>60); Estimated Creatinine Clearance 164.46 ml/min; Glucose 97 mg/dL (74-106); Hematocrit 45.3 % (40-54); Hemoglobin 14.5 g/dL (13.0-16.5); Lymphocyte # 2.59 X10^3/ul (0.83-4.51); Lymphocyte % 28.5 % (19-41); Mean Corpuscular Hgb 30.2 pg (27.0-32.0); Mean Corpuscular Volume 94.4 fL (80-94); Mean Platelet Vol. 9.9 fl (6.2-12.0); Monocyte# 0.63 X10^3/uL; Monocyte% 6.9 % (0-10); NRBC Flagged by Analyzer 0 % (0-5); Neutrophil # 5.47 X10^3/uL (2.7-7.7); Neutrophil % 60.1 % (47-70); Platelet Count 367 K/mm3 (150-450); Potassium 3.8 mmol/L (3.5-5.1); RBC Distribution Width CV 16.8 % (11.6-14.6); RBC Distribution Width SD 58.3 fl (35.1-43.9); Sodium Level 139 mmol/L (136-145); White Blood Count 9.1 K/mm3 (4.4-11.0)
[2024-05-14] MEDS: Ipratropium/Albuterol Sulfate 3 ML AMPUL.NEB INHALATION ×3 (07:22→19:26)
--- NOTE | 2024-05-14 09:33 | PN_ITS ---
Subjective Subjective Patient seen and examined. He has no active complaints. Review of systems is otherwise negative. He remains no room air. He is for cardiac cath on Thursday. Objective Data Objective Data Vital Signs: Vital Signs Temp Pulse Resp BP Pulse Ox O2 Del Method 97.6 F L 88 20 H 118/87 H 96 Room Air 05/14/24 03:03 05/14/24 07:22 05/14/24 07:22 05/14/24 03:03 05/14/24 07:22 05/14/24 07:22 Oxygen Delivery Method Room Air Weight: 345 lb 3.902 oz Body Mass Index (BMI) 49.5 Intake & Output: Intake and Output for Last 24 Hours 05/12/24 05/13/24 05/14/24 23:59 23:59 23:59 Intake Total 680 / 680 1445 / 1445 0 / 0 Output Total 2575 / 2575 1999 Balance -1895 / -1895 -555 / -555 0 / 0 Lab / Micro Data 05/14/24 06:15 05/14/24 06:15 Labs: Laboratory Results - last 24 hr 05/14/24 06:15: WBC 9.1, RBC 4.80, Hgb 14.5, Hct 45.3, MCV 94.4 H, MCH 30.2, MCHC 32.0, RDW Std Deviation 58.3 H, RDW Coeff of Sean 16.8 H, Plt Count 367, MPV 9.9, Immature Gran % (Auto) 0.300, Neut % (Auto) 60.1, Lymph % (Auto) 28.5, [place] % (Auto) 6.9, Eos % (Auto) 3.4, Baso % (Auto) 0.8, Absolute Neuts (auto) 5.5, Absolute Lymphs (auto) 2.59, Nucleated RBC % 0, Sodium 139, Potassium 3.8, Chloride 103, Carbon Dioxide 31.0, Anion Gap 6, BUN 16, Creatinine 0.80, Estim Creat Clear Calc 164.46, Est GFR (MDRD) Af Amer 131, Est GFR (MDRD) Non-Af 109, BUN/Creatinine Ratio 20.1 H, Glucose 97, Calcium 9.2 Micro: Microbiology 05/12/24 17:45 Urine, Clean Catch Legionella Antigen - Final 05/12/24 17:45 Urine, Clean Catch Streptococcus pneumoniae Antigen (M - Final 05/12/24 10:13 Mucosa - Nose SARS-CoV-2, Influenza & RSV (PCR) - Final Radiography Diagnostic Testing: Radiology Impression Echocardiogram 05/12/24 12:49 Interpretation Summary The estimated ejection fraction is 35 %. There is evidence of diastolic dysfunction. Base of the LV is lauren well. Rest of the LV is severely hypokinetic to akinetic. Ordering Physician: Felicia Gupta Referring Physician: CINTIA PCP Performed By: Criss Lassiter RCS Physical Exam Const alert, oriented x3 and no apparent distress Constitutional Narrative: obese General Appearance: cooperative HEENT normocephalic, head/scalp atraumatic, hearing grossly normal bilaterally and moist oral mucous membranes Eyes PERRL, EOMs intact bilaterally and conjunctivae normal Neck no lymphadenopathy and supple Lymph Lymphatic: no lymphadenopathy noted and no lymphedema noted Resp Resp Narrative: Moderately diminished breath sounds bibasilarly. No wheezes or crackles. On room air. Cardio regular rate, regular rhythm, S1 normal heart sound, S2 normal heart sound and no murmurs GI normal to inspection, nondistended, normoactive bowel sounds, soft to palpation, non-tender and non-distended Extremity normal to inspection, full ROM, normal capillary refill and no clubbing, cyanosis or edema General Extremity: no tenderness to palpation of joints or extremities Skin General Skin Exam: no breakdown and turgor normal Neuro oriented x3, CN's II-XII intact bilaterally, moves all extremities and no focal motor deficits Sensorium / Orientation: awake and alert Motor Exam: strength 5/5 throughout Psych thought process normal, cooperative and affect normal Appearance: appropriate Assessment & Plan Assessment/Plan (1) Dyspnea on exertion: (2) Congestive heart failure: PLAN: Plan #Acute systolic and diastolic heart failure * improved markedly and remains on room air. * Chest x-ray showed evidence of vascular congestion. BNP elevated at 788. No baseline in the system. He does not have any known heart failure. * Troponins x 2 were negative. * now on PO lasix. * In cumulative negative balance by 1.845L. * Monitor intake and output. Fluid restriction 1500 cc daily. * Respiratory panel negative for COVID, flu and RSV * Oxygen as needed and titrate to maintain saturation above 90%. * 2D echo done showed EF of 35% with evidence of diastolic dysfunction and base of the left ventricle lauren well but the rest of the left ventricle is severely hypokinetic to akinetic * cardiology consulted. To have cardiac cath on Thursday to evaluate for ischemic cardiomyopathy. * * #Probable pneumonia * Patient also complained that he had a fever at home with associated cough productive of sputum. * urine for strep and Legionella antigens negative. Sputum culture pending * On IV ceftriaxone and azithromycin. * breathing treatment with bronchodilators. * wbc down to 9.1. * will switch to PO levaquin for a 5 day course. #Super morbid obesity: BMI is 49.1. Complicates acute care, expected recovery and prognosis. 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 * He does not know the name of the lung disease and does not follow-up with a health and safety technician also. * Will benefit from pulmonology referral on outpatient basis on discharge. * DVT prophylaxis: Lovenox CODE STATUS: Full code * Charges/Coding Visit Charges
[2024-05-14] MEDS: Azithromycin 500 MG in Dextrose 5%-Water (250mL Bag) 250 ML 250 MG IV (09:37)
[2024-05-14] MEDS: Furosemide 40 MG Tablet PO ×2 (09:37→17:03)
[2024-05-14] MEDS: Lisinopril 20 MG Tablet PO (09:37)
[2024-05-14] MEDS: Enoxaparin 40 MG/0.4 ML Syringe SC (09:37)
[2024-05-14] MEDS: 0.9% Saline Lock 10 ML Syringe IV (09:37)
[2024-05-14] MEDS: levoFLOXacin 750 MG Tablet PO (12:18)
--- NOTE | 2024-05-14 17:08 | PCM.CONS.C ---
Assessment & Plan Assessment/Plan (1) Congestive heart failure: QUALIFIERS: Heart failure type: systolic Heart failure chronicity: acute Qualified Code(s): I50.21 - Acute systolic (congestive) heart failure PLAN: Agree with lisinopril and Lasix. Add metoprolol succinate 50 mg p.o. twice daily. Will proceed with coronary angiography on Thursday to evaluate etiology of LV dysfunction. Risks and benefits discussed with the patient and patient wishes to proceed. HPI Consult Data Date of Consult: 05/14/24 HPI Narrative Reason for Consultation: Shortness of breath, LV dysfunction HPI Narrative: VERONICA MONTE, is a 53 M who presents with shortness of breath. He was diuresed for decompensated heart failure and has improved symptomatically. He feels that he is back to his baseline. His 2D echo revealed severely depressed LVEF. [facility] Medical History Lung abnormality Home Medications ?Medication ?Instructions ?Recorded ?Last Taken ?Type lisinopril 20 mg tablet 20 mg PO DAILY 05/12/24 Unknown History Allergy/AdvReac Type Severity Reaction Status Date / Time Penicillins (PCN) Allergy Hives Verified 05/12/24 09:49 Social History Smoking Status: Never smoker Physical Exam Const alert and oriented x3 HEENT normocephalic Eyes no scleral icterus Resp normal respiratory effort Cardio regular rate Extremity no pedal edema Skin no rashes or lesions noted Psych mental status grossly normal Risk Stratification Risk Stratification Applicable: No Charges/Coding Visit Charges Inpatient E&M: 39995 Init Hosp L2 Objective Data Vital Signs: Vital Signs Temp Pulse Resp BP Pulse Ox O2 Del Method 98.0 F 91 18 107/58 L 99 Room Air 05/14/24 16:00 05/14/24 16:00 05/14/24 16:00 05/14/24 16:00 05/14/24 16:00 05/14/24 16:01 Oxygen Delivery Method Room Air Weight: 345 lb 3.902 oz Body Mass Index (BMI) 49.5 Intake & Output: Intake and Output for Last 24 Hours 05/12/24 05/13/24 05/14/24 23:59 23:59 23:59 Intake Total 680 / 680 1445 / 1445 591.67 / 591.67 Output Total 2575 / 2575 1999 Balance -1895 / -1895 -555 / -555 591.67 / 591.67 Lab / Micro Data 05/14/24 06:15 05/14/24 06:15 Labs: Laboratory Results - last 24 hr 05/14/24 06:15: WBC 9.1, RBC 4.80, Hgb 14.5, Hct 45.3, MCV 94.4 H, MCH 30.2, MCHC 32.0, RDW Std Deviation 58.3 H, RDW Coeff of Sean 16.8 H, Plt Count 367, MPV 9.9, Immature Gran % (Auto) 0.300, Neut % (Auto) 60.1, Lymph % (Auto) 28.5, [place] % (Auto) 6.9, Eos % (Auto) 3.4, Baso % (Auto) 0.8, Absolute Neuts (auto) 5.5, Absolute Lymphs (auto) 2.59, Nucleated RBC % 0, Sodium 139, Potassium 3.8, Chloride 103, Carbon Dioxide 31.0, Anion Gap 6, BUN 16, Creatinine 0.80, Estim Creat Clear Calc 164.46, Est GFR (MDRD) Af Amer 131, Est GFR (MDRD) Non-Af 109, BUN/Creatinine Ratio 20.1 H, Glucose 97, Calcium 9.2 Cardiology Labs/Tests 05/14/24 06:15: WBC 9.1, RBC 4.80, Hgb 14.5, Hct 45.3, MCV 94.4 H, MCH 30.2, MCHC 32.0, Plt Count 367, MPV 9.9, Immature Gran % (Auto) 0.300, Neut % (Auto) 60.1, Lymph % (Auto) 28.5, [place] % (Auto) 6.9, Eos % (Auto) 3.4, Baso % (Auto) 0.8, Absolute Neuts (auto) 5.5, Nucleated RBC % 0, Sodium 139, Potassium 3.8, Chloride 103, Carbon Dioxide 31.0, Anion Gap 6, BUN 16, Creatinine 0.80, Est GFR (MDRD) Af Amer 131, Est GFR (MDRD) Non-Af 109, BUN/Creatinine Ratio 20.1 H, Glucose 97, Calcium 9.2 Rhythm: EKG: ECHO: Stress Test: Cardiac Cath: PCI: CT Surgery: Holter monitor: EPS: PPM: CXR: Chest CT Scan:
[2024-05-15] VITALS (7 sets, daily range): BP systolic 100–119; BP diastolic 63–69; PULSE 87–92; RESP 16–20; TEMP 36.3–37.1; O2SAT 94–98
[2024-05-15] MEDS: levoFLOXacin 750 MG Tablet PO (05:23)
[2024-05-15 06:58] LABS: Absolute Lymphocyte Count 2.37 X10^3/uL (0.83-4.51); Absolute Neutrophil Count 7.2 X10^3/uL (2.0-7.7); Basophil# 0.07 X10^3/uL; Basophil% 0.7 % (0-1); Eosinophil# 0.25 X10^3/uL; Eosinophils% 2.3 % (0-5); Hematocrit 44.5 % (40-54); Lymphocyte # 2.37 X10^3/ul (0.83-4.51); Mean Corp Hgb Conc 31.5 g/dL (32-36); Mean Corpuscular Hgb 29.6 pg (27.0-32.0); Mean Corpuscular Volume 94.1 fL (80-94); Mean Platelet Vol. 9.7 fl (6.2-12.0); Monocyte% 7.4 % (0-10); NRBC Flagged by Analyzer 0 % (0-5); Neutrophil # 7.24 X10^3/uL (2.7-7.7); Neutrophil % 67.3 % (47-70); Platelet Count 397 K/mm3 (150-450); RBC Distribution Width SD 58.1 fl (35.1-43.9); Red Blood Count 4.73 M/mm3 (4.6-6.2); White Blood Count 10.8 K/mm3 (4.4-11.0)
[2024-05-15 07:12] LABS: Anion Gap 6 (5-15); BUN 13 mg/dL (7-18); BUN/Creat Ratio 14.8 RATIO (10-20); Calcium,Total 9.2 mg/dL (8.5-10.1); Chloride 102 mmol/L (98-107); Creatinine, Serum 0.88 mg/dL (0.70-1.30); EST Glomerular Filtration Rate 97 mL/min (>60); Est Glom Filt Rate - Afr Amer 117 mL/min (>60); Estimated Creatinine Clearance 149.51 ml/min; Glucose 94 mg/dL (74-106); Sodium Level 137 mmol/L (136-145)
[2024-05-15] MEDS: Lisinopril 20 MG Tablet PO (09:19)
[2024-05-15] MEDS: Enoxaparin 40 MG/0.4 ML Syringe SC (09:19)
[2024-05-15] MEDS: Furosemide 40 MG Tablet PO ×2 (09:19→16:49)
--- NOTE | 2024-05-15 11:40 | PN_ITS ---
Subjective Subjective Patient seen and examined. He had no complaints. He uneventful night and review of systems otherwise negative. Abdomen hemodynamically stable. Objective Data Objective Data Vital Signs: Vital Signs Temp Pulse Resp BP Pulse Ox O2 Del Method 98.1 F 92 18 102/67 94 Room Air 05/15/24 09:16 05/15/24 09:16 05/15/24 09:16 05/15/24 09:16 05/15/24 09:16 05/15/24 09:16 Oxygen Delivery Method Room Air Weight: 345 lb 3.902 oz Body Mass Index (BMI) 49.5 Intake & Output: Intake and Output for Last 24 Hours 05/13/24 05/14/24 05/15/24 23:59 23:59 23:59 Intake Total 1445 / 1445 591.67 / 711.67 120 / 120 Output Total 1999 / 1999 1500 / 1500 Balance -555 / -555 -908.33 / -788.33 120 / 120 Lab / Micro Data 05/15/24 05:10 05/15/24 05:10 Labs: Laboratory Results - last 24 hr 05/15/24 05:10: WBC 10.8, RBC 4.73, Hgb 14.0, Hct 44.5, MCV 94.1 H, MCH 29.6, M CHC 31.5 L, RDW Std Deviation 58.1 H, RDW Coeff of [place] 17.0 H, Plt Count 397, MPV 9.7, Immature Gran % (Auto) 0.300, Neut % (Auto) 67.3, Lymph % (Auto) 22.0, [place] % (Auto) 7.4, Eos % (Auto) 2.3, Baso % (Auto) 0.7, Absolute Neuts (auto) 7.2, Absolute Lymphs (auto) 2.37, Nucleated RBC % 0, Sodium 137, Potassium 4.0, Chloride 102, Carbon Dioxide 29.0, Anion Gap 6, BUN 13, Creatinine 0.88, Estim Creat Clear Calc 149.51, Est GFR (MDRD) Af Amer 117, Est GFR (MDRD) Non-Af 97, BUN/Creatinine Ratio 14.8, Glucose 94, Calcium 9.2 Micro: Microbiology 05/12/24 17:45 Urine, Clean Catch Legionella Antigen - Final 05/12/24 17:45 Urine, Clean Catch Streptococcus pneumoniae Antigen (M - Final 05/12/24 10:13 Mucosa - Nose SARS-CoV-2, Influenza & RSV (PCR) - Final Physical Exam Const alert, oriented x3 and no apparent distress Constitutional Narrative: obese General Appearance: cooperative HEENT normocephalic, head/scalp atraumatic, hearing grossly normal bilaterally and moist oral mucous membranes Eyes PERRL, EOMs intact bilaterally and conjunctivae normal Neck no lymphadenopathy and supple Lymph Lymphatic: no lymphadenopathy noted and no lymphedema noted Resp Resp Narrative: Moderately diminished breath sounds bibasilarly. No wheezes or crackles. On room air. Cardio regular rate, regular rhythm, S1 normal heart sound, S2 normal heart sound and no murmurs GI normal to inspection, nondistended, normoactive bowel sounds, soft to palpation, non-tender and non-distended Extremity normal to inspection, full ROM, normal capillary refill and no clubbing, cyanosis or edema General Extremity: no tenderness to palpation of joints or extremities Skin General Skin Exam: no breakdown and turgor normal Neuro oriented x3, CN's II-XII intact bilaterally, moves all extremities and no focal motor deficits Sensorium / Orientation: awake and alert Motor Exam: strength 5/5 throughout Psych thought process normal, cooperative and affect normal Appearance: appropriate Assessment & Plan Assessment/Plan (1) Dyspnea on exertion: (2) Congestive heart failure: QUALIFIERS: Heart failure type: systolic Heart failure chronicity: acute Qualified Code(s): I50.21 - Acute systolic (congestive) heart failure PLAN: Plan #Acute systolic and diastolic heart failure * on room air. Feels much better * Chest x-ray showed evidence of vascular congestion. BNP elevated at 788. No baseline in the system. He does not have any known heart failure. * Troponins x 2 were negative. * now on PO lasix. * on PO lisinopril * Monitor intake and output. Fluid restriction 1500 cc daily. * Respiratory panel negative for COVID, flu and RSV * Oxygen as needed and titrate to maintain saturation above 90%. * 2D echo done showed EF of 35% with evidence of diastolic dysfunction and base of the left ventricle lauren well but the rest of the left ventricle is severely hypokinetic to akinetic * cardiology on board. To have cardiac cath on Thursday to evaluate for ischemic cardiomyopathy. * * #Probable pneumonia * Patient also complained that he had a fever at home with associated cough productive of sputum. * urine for strep and Legionella antigens negative. Sputum culture pending * now on PO levaquin; to complete a 5 day course. * #Hypertension: on lisinopril. BP has been stable. Will defer to cardiology about adding on a beta michi. #Super morbid obesity: BMI is 49.5. Complicates acute care, expected recovery and prognosis. 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 * He does not know the name of the lung disease and does not follow-up with a heat treater helper also. * Will benefit from pulmonology referral on outpatient basis on discharge. * DVT prophylaxis: Lovenox CODE STATUS: Full code * Charges/Coding Visit Charges Inpatient E&M: 35546 Subs Hosp L2
--- NOTE | 2024-05-15 11:42 | PN.CARD_ITS ---
Subjective Subjective Doing well. Denies any cardiac complaints Objective Data Vital Signs: Vital Signs Temp Pulse Resp BP Pulse Ox O2 Del Method 98.1 F 92 18 102/67 94 Room Air 05/15/24 09:16 05/15/24 09:16 05/15/24 09:16 05/15/24 09:16 05/15/24 09:16 05/15/24 09:16 Oxygen Delivery Method Room Air Weight: 345 lb 3.902 oz Body Mass Index (BMI) 49.5 Intake & Output: Intake and Output for Last 24 Hours 05/13/24 05/14/24 05/15/24 23:59 23:59 23:59 Intake Total 1445 / 1445 591.67 / 711.67 120 / 120 Output Total 1999 / 1999 1500 / 1500 Balance -555 / -555 -908.33 / -788.33 120 / 120 Lab / Micro Data 05/15/24 05:10 05/15/24 05:10 Labs: Laboratory Results - last 24 hr 05/15/24 05:10: WBC 10.8, RBC 4.73, Hgb 14.0, Hct 44.5, MCV 94.1 H, MCH 29.6, M CHC 31.5 L, RDW Std Deviation 58.1 H, RDW Coeff of Sean 17.0 H, Plt Count 397, MPV 9.7, Immature Gran % (Auto) 0.300, Neut % (Auto) 67.3, Lymph % (Auto) 22.0, [place] % (Auto) 7.4, Eos % (Auto) 2.3, Baso % (Auto) 0.7, Absolute Neuts (auto) 7.2, Absolute Lymphs (auto) 2.37, Nucleated RBC % 0, Sodium 137, Potassium 4.0, Chloride 102, Carbon Dioxide 29.0, Anion Gap 6, BUN 13, Creatinine 0.88, Estim Creat Clear Calc 149.51, Est GFR (MDRD) Af Amer 117, Est GFR (MDRD) Non-Af 97, BUN/Creatinine Ratio 14.8, Glucose 94, Calcium 9.2 Cardiology Labs/Tests 05/15/24 05:10: WBC 10.8, RBC 4.73, Hgb 14.0, Hct 44.5, MCV 94.1 H, MCH 29.6, M CHC 31.5 L, Plt Count 397, MPV 9.7, Immature Gran % (Auto) 0.300, Neut % (Auto) 67.3, Lymph % (Auto) 22.0, [place] % (Auto) 7.4, Eos % (Auto) 2.3, Baso % (Auto) 0.7, Absolute Neuts (auto) 7.2, Nucleated RBC % 0, Sodium 137, Potassium 4.0, Chloride 102, Carbon Dioxide 29.0, Anion Gap 6, BUN 13, Creatinine 0.88, Est GFR (MDRD) Af Amer 117, Est GFR (MDRD) Non-Af 97, BUN/Creatinine Ratio 14.8, Glucose 94, Calcium 9.2 Rhythm: EKG: ECHO: Stress Test: Cardiac Cath: PCI: CT Surgery: Holter monitor: EPS: PPM: CXR: Chest CT Scan: Physical Exam Const alert and oriented x3 HEENT normocephalic Eyes no scleral icterus Resp normal respiratory effort Cardio regular rate Extremity no pedal edema Skin no rashes or lesions noted Psych mental status grossly normal Assessment & Plan Assessment/Plan (1) Congestive heart failure: QUALIFIERS: Heart failure type: systolic Heart failure chronicity: acute Qualified Code(s): I50.21 - Acute systolic (congestive) heart failure PLAN: Agree with lisinopril and Lasix. Add metoprolol succinate 50 mg p.o daily. Will proceed with coronary angiography on Thursday to evaluate etiology of LV dysfunction. Risks and benefits discussed with the patient and patient wishes to proceed.
[2024-05-15] MEDS: Ipratropium/Albuterol Sulfate 3 ML AMPUL.NEB INHALATION ×2 (12:32→19:25)
[2024-05-16] VITALS (15 sets, daily range): BP systolic 97–122; BP diastolic 60–72; PULSE 82–91; RESP 14–21; TEMP 35.9–36.7; O2SAT 93–98
[2024-05-16] MEDS: levoFLOXacin 750 MG Tablet PO (05:42)
[2024-05-16] MEDS: Lisinopril 20 MG Tablet PO (05:42)
[2024-05-16 05:46] LABS: Absolute Lymphocyte Count 2.08 X10^3/uL (0.83-4.51); Absolute Neutrophil Count 6.4 X10^3/uL (2.0-7.7); Basophil# 0.07 X10^3/uL; Basophil% 0.7 % (0-1); Eosinophil# 0.36 X10^3/uL; Eosinophils% 3.7 % (0-5); Hematocrit 43.9 % (40-54); Hemoglobin 13.8 g/dL (13.0-16.5); Lymphocyte # 2.08 X10^3/ul (0.83-4.51); Lymphocyte % 21.2 % (19-41); Mean Corp Hgb Conc 31.4 g/dL (32-36); Mean Corpuscular Hgb 29.7 pg (27.0-32.0); Mean Corpuscular Volume 94.6 fL (80-94); Mean Platelet Vol. 9.5 fl (6.2-12.0); Monocyte# 0.88 X10^3/uL; NRBC Flagged by Analyzer 0 % (0-5); Platelet Count 365 K/mm3 (150-450); RBC Distribution Width CV 16.8 % (11.6-14.6); RBC Distribution Width SD 58.4 fl (35.1-43.9); Red Blood Count 4.64 M/mm3 (4.6-6.2); White Blood Count 9.8 K/mm3 (4.4-11.0)
--- NOTE | 2024-05-16 05:55 | EKG12_ITS ---
Test Reason : AM EKG Blood Pressure : / mmHG Vent. Rate : 084 BPM Atrial Rate : 084 BPM P-R Int : 146 ms QRS Dur : 166 ms QT Int : 446 ms P-R-T Axes : 023 093 020 degrees QTc Int : 527 ms Normal sinus rhythm Rightward axis Left bundle branch block Abnormal ECG When compared with ECG of 12-MAY-2024 10:10, No significant change was found Confirmed by BAKARI PRADO, ELSA ([id number]), clinical editor LEX EISENBERG ([id number]) on 05/17/2024 11:40:50 AM Referred By: MARBELLA Confirmed By:ELSA VILLEGAS MD
[2024-05-16 06:04] LABS: Anion Gap 5 (5-15); BUN 11 mg/dL (7-18); BUN/Creat Ratio 11.6 RATIO (10-20); Calcium,Total 9.4 mg/dL (8.5-10.1); Chloride 101 mmol/L (98-107); Creatinine, Serum 0.95 mg/dL (0.70-1.30); EST Glomerular Filtration Rate 89 mL/min (>60); Est Glom Filt Rate - Afr Amer 108 mL/min (>60); Glucose 104 mg/dL (74-106); Potassium 3.9 mmol/L (3.5-5.1); Sodium Level 136 mmol/L (136-145)
[2024-05-16] MEDS: Ipratropium/Albuterol Sulfate 3 ML AMPUL.NEB INHALATION (06:36)
--- NOTE | 2024-05-16 09:48 | PN.CARD_ITS ---
Subjective Subjective Patient seen and evaluated. Appears to be doing well. Underwent cardiac catheterization today Objective Data Vital Signs: Vital Signs Temp Pulse Resp BP Pulse Ox O2 Del Method 97.9 F 90 18 103/63 96 Room Air 05/16/24 07:57 05/16/24 07:57 05/16/24 07:57 05/16/24 07:57 05/16/24 07:57 05/16/24 07:57 Oxygen Delivery Method Room Air Weight: 345 lb 3.902 oz Body Mass Index (BMI) 49.5 Intake & Output: Intake and Output for Last 24 Hours 05/14/24 05/15/24 05/16/24 23:59 23:59 23:59 Intake Total 591.67 / 711.67 1220 / 1220 660 / 660 Output Total 1500 / 1500 3600 / 3600 1300 / 1300 Balance -908.33 / -788.33 -2380 / -2380 -640 / -640 Lab / Micro Data 05/16/24 05:16 05/16/24 05:16 Labs: Laboratory Results - last 24 hr 05/16/24 05:16: WBC 9.8, RBC 4.64, Hgb 13.8, Hct 43.9, MCV 94.6 H, MCH 29.7, M CHC 31.4 L, RDW Std Deviation 58.4 H, RDW Coeff of Sean 16.8 H, Plt Count 365, MPV 9.5, Immature Gran % (Auto) 0.400, Neut % (Auto) 65.0, Lymph % (Auto) 21.2, [place] % (Auto) 9.0, Eos % (Auto) 3.7, Baso % (Auto) 0.7, Absolute Neuts (auto) 6.4, Absolute Lymphs (auto) 2.08, Nucleated RBC % 0, Sodium 136, Potassium 3.9, Chloride 101, Carbon Dioxide 29.0, Anion Gap 5, BUN 11, Creatinine 0.95, Estim Creat Clear Calc 138.50, Est GFR (MDRD) Af Amer 108, Est GFR (MDRD) Non-Af 89, BUN/Creatinine Ratio 11.6, Glucose 104, Calcium 9.4 Cardiology Labs/Tests 05/16/24 05:16: WBC 9.8, RBC 4.64, Hgb 13.8, Hct 43.9, MCV 94.6 H, MCH 29.7, M CHC 31.4 L, Plt Count 365, MPV 9.5, Immature Gran % (Auto) 0.400, Neut % (Auto) 65.0, Lymph % (Auto) 21.2, [place] % (Auto) 9.0, Eos % (Auto) 3.7, Baso % (Auto) 0.7, Absolute Neuts (auto) 6.4, Nucleated RBC % 0, Sodium 136, Potassium 3.9, Chloride 101, Carbon Dioxide 29.0, Anion Gap 5, BUN 11, Creatinine 0.95, Est GFR (MDRD) Af Amer 108, Est GFR (MDRD) Non-Af 89, BUN/Creatinine Ratio 11.6, Glucose 104, Calcium 9.4 Rhythm: EKG: ECHO: Stress Test: Cardiac Cath: PCI: CT Surgery: Holter monitor: EPS: PPM: CXR: Chest CT Scan: Physical Exam Const alert, oriented x3 and no apparent distress General Appearance: cooperative HEENT hearing grossly normal bilaterally Head and Scalp: atraumatic Eyes EOMs intact bilaterally Neck General: normal visual inspection Chest inspection of chest normal and palpation of chest normal Resp normal respiratory effort Auscultation: clear to auscultation bilaterally Cardio regular rate, regular rhythm, S1 normal heart sound and S2 normal heart sound Jugular Venous Distention: JVD GI normal to inspection, nondistended, normoactive bowel sounds Extremity normal capillary refill and no pedal edema Peripheral Pulses: Yes pulses 2+ throughout and femoral pulses present Skin no rashes or lesions noted Neuro oriented x3 and CN's II-XII intact bilaterally Psych Appearance: grossly normal and appropriate Assessment & Plan Assessment/Plan (1) Congestive heart failure: QUALIFIERS: Heart failure type: systolic Heart failure chronicity: acute Qualified Code(s): I50.21 - Acute systolic (congestive) heart failure PLAN: Patient presented with shortness of breath and was noted to have systolic heart failure. Cardiac catheterization today demonstrated normal coronary arteries and estimated ejection fraction of 20 to 25%. * Recommendation will be as follows: Carvedilol 3.125 mg twice a day. Lasix reduced to 40 mg once a day. Add spironolactone 25 mg a day. Continue lisinopril 20 mg a day and eventually switched to Entresto as outpatient. Consider SGLT2 inhibitor. Patient can be discharged for outpatient management. Weight loss will also be strongly emphasized. Low-sodium diet will also be emphasized.
--- NOTE | 2024-05-16 09:55 | CL.D_ITS ---
Patient Name: VERONICA MONTE Study Date: 05/16/2024 Performing: Brennon Beckman MD Ht: 70 inches 177.8 cm : 1970 Wt: 345.24 lbs 156.6 kg Age: 53 Gender: male BSA: 2.63 PROCEDURE(S) PERFORMED [id number])LHC/COR/LV CLINICAL PROFILE AND INDICATIONS Indications: Cardiomyopathy Heart Failure: NYHA Class: 3, Newly Diagnosed: Yes, Heart Failure Type: Systolic Stress/Imaging Stress/Image Study Performed: No CAD Presentations: Other: sob CONCLUSIONS Normal coronary arteries Cardiomyopathy: Dilated RECOMMENDATIONS Recommend guideline directed medical therapy. DESCRIPTION OF PROCEDURE The patient arrived to the procedure lab. The risks and benefits of the procedure as well as a full description of our services here and current unavailability of surgical backup were fully explained to the patient and/or their significant other prior to the catheterization. The Timeout was completed, verifying the correct patient and procedure. The patient's procedural site was prepped and draped in the usual fashion. Local anesthetic was given subcutaneously to right radial region with Lidocaine 2%. Using a modified Seldinger technique, arterial access was obtained via the right radial artery, a 6Fr sheath was inserted. Right Coronary Artery selective angiography was then performed in multiple views using a 5 Fr. 4.0 [place] catheter. Left Coronary Artery selective angiography was performed in multiple views using a 5 Fr. 4.0 [place] catheter. Left Ventriculography was performed in LAMAR projection using a 5 Fr. Pigtail catheter. LV to AO pullback pressures were then recorded.The arterial sheath was pulled and a TR Band was applied for hemostasis. 12cc of air CORONARY ANGIOGRAPHY DOMINANCE: Right Dominant LEFT HEART ASSESSMENT Left Ventricular Ejection Fraction: by LV Gram 20 % Global Hypokinesis - Severe Depressed Left Ventricular systolic function LEFT MAIN: Angiographically normal LEFT ANTERIOR DESCENDING ARTERY: Angiographically normal CIRCUMFLEX ARTERY: Angiographically normal RIGHT CORONARY ARTERY: Angiographically normal COMPLICATIONS No Complications PROCEDURE MEDICATIONS Fentanyl 50 mcg IV Versed 1 mg IV Versed 1 mg IV Oxygen: 2 L/min via nasal cannula Aspirin (325mg) 1 Tabs PO @ 05/16/2024 08:18:53 Heparin given IA 05/16/2024 09:17:13 SUMMARY OF HEMODYNAMIC DATA Time AIR REST ECG 09:06:04 Art 122/72 (89) 09:31:11 AO 110/73 (89) SA 09:36:21 LV 114/17, 38 09:40:36 LV 109/19, 29 09:40:43 LV 102/19, 28 09:41:22 LVp 101/14, 26 09:41:28 AO 98/66 (79) 09:41:33 09:53:06 Signed By Brennon Beckman MD On 05/16/2024 09:55:20 Brennon Beckman MD
[2024-05-16] MEDS: Spironolactone 25 MG Tablet PO (11:18)
[2024-05-16] MEDS: Carvedilol 3.125 MG TABLET PO (11:18)
[2024-05-16] MEDS: Furosemide 40 MG Tablet PO (13:00)
--- NOTE | 2024-05-16 13:44 | DS.PCM_ITS ---
Providers Date of Admission: 05/12/24 Primary Care Physician: Lottie Primary Care Phys Reason For Visit: ACUTE HEART FAILURE Diagnosis Discharge Diagnosis (1) Congestive heart failure: Status: Acute Code(s): I50.9 - Heart failure, unspecified Qualifiers: Heart failure type: systolic Heart failure chronicity: acute Qualified Code(s): I50.21 - Acute systolic (congestive) heart failure Medications at Discharge Home Medications lisinopril 20 mg tablet 20 mg PO DAILY 05/12/24 carvedilol 3.125 mg tablet 3.125 mg PO BID #60 tabs 05/16/24 furosemide 40 mg tablet 40 mg PO DAILY #30 tabs 05/16/24 levofloxacin 750 mg tablet 750 mg PO DAILY@0600 #4 tabs 05/16/24 spironolactone 25 mg tablet 25 mg PO DAILY #30 tabs 05/16/24 Hospital Course Operations None Procedures 2-D Echocardiogram, Cardiac catheterization, EKG and - (CXR) Summary of Care Provided Minutes Spent on Discharge: 39 Hospital Course: Mr. Poole is a 53 yo male who presented to [facility] emergency department on 05/12/2020 for complaining of shortness of breath. Patient reported that he felt acutely short of breath that was worsened with exacerbation relieved with rest. He denied orthopnea on presentation and indicated he sleeps only on 1 pillow. He did complain of some associated cough and fever and reported that his son had recently traveled and came home with a respiratory infection which she feels he was given. He did indicate that he had cough to the point of vomiting at times. He denies any chest pain, lightheadedness, or dizziness. 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 Vital signs on presentation showed that he was afebrile, blood pressure was 139/99, heart rate 99, respiratory of 18 oxygen saturations were 98% room air. CBC showed a hemoglobin of 15 with a white count of 12.1 and platelets were normal. Chemistry panel was overtly unremarkable other than elevated bicarb of 29. BNP was markedly elevated at 788 and his troponin was 20. EKG showed no acute changes and his chest x-ray showed mild cardiomegaly with vascular congestion. He was admitted to the medical floor with acute exacerbation of HF with unknown type and placed on IV diuretics, fluid restriction, sodium restriction and a 2D echo was ordered. Infectious workup was pursued but found to be negative. Given the fact that he was having fever and chills at home and had a leukocytosis on presentation he was treated with antibiotics with a plan to be discharged on Levaquin to complete a 7-day course. Echocardiogram was performed on 05/13/2024 and he was found to have an EF of 35% with no diastolic dysfunction. The base of the LV was lauren well but the rest of the LV was severely hypokinetic to akinetic. Cardiology was consulted given his echocardiogram results and he was taken to the [facility] on 05/16/2024 to rule out ischemic etiologies. Cardiac catheterization showed completely normal coronary arteries with an estimated EF of 20 to 25%. It was recommended that we continue goal-directed therapy at discharge. We started him on carvedilol 3.125 twice daily, Aldactone 25 mg daily, his lisinopril 20 mg daily was continued with plans to possibly switch to Entresto as an outpatient if it can be covered under patient assistance, and we considered adding an SLG T2 inhibitor however he is uninsured and the cost was prohibitive. Patient is morbidly obese and would likely benefit from testing for MICHA via polysomnography after discharge. The patient has never been tested and denied any knowing diagnosis of sleep apnea. We did discuss a low-sodium diet with supplementation using potassium chloride if needed for salt substitute and with fluid restriction at 2 L daily. He is to obtain a scale and weigh himself on a daily basis in the morning with no close on and know if he gains 2 pounds or more. If he does gain 2 pounds or more he was instructed to take an extra dose of Lasix and call cardiology if follow-up. We did make an appointment to see cardiology prior to discharge and the appointment is for 06/06/2024 at 9:30 in the morning. He was strongly encouraged to follow-up at the scheduled appointment. We did refer [facility] at discharge as he does not currently have a primary care physician. We have asked him to be seen in the next week if possible. Discharge diagnoses: Acute HFrEF-now compensated Community-acquired pneumonia Leukocytosis-resolved Essential hypertension Super morbid obesity Suspected MICHA Possible interstitial lung disease Physical Exam Const alert, oriented x3, no apparent distress, no limitations and well nourished; Negative for average body habitus or healthy appearing Constitutional Narrative: Morbidly obese, middle-aged, white male, sitting up in bed, appears comfortable, nontoxic, watching television General Appearance: cooperative, comfortable, well kempt and well developed Orientation / Consciousness: awake, oriented to person, oriented to place and oriented to time Exam Limitations: no limitations Nutritional Appearance: morbidly obese HEENT normocephalic, head/scalp atraumatic, hearing grossly normal bilaterally and moist oral mucous membranes HEENT Narrative: Dentition is poor, Mallampati is 3-4, no thrush Eyes PERRL, EOMs intact bilaterally and conjunctivae normal Eyes Narrative: No scleral icterus Neck no lymphadenopathy and supple Neck Narrative: Neck is short and thick, trachea midline Resp normal respiratory effort, no retractions, no use of accessory muscles and clear to auscultation bilaterally Auscultation: Negative for rales, rhonchi or wheezes Cardio regular rate, regular rhythm, S1 normal heart sound, S2 normal heart sound, no murmurs, no rub, no gallops and no clicks GI normal to inspection, nondistended, normoactive bowel sounds, soft to palpation and non-tender GI Narrative: Large protuberant abdomen Extremity no clubbing, cyanosis or edema Skin no rashes or lesions noted and no wounds Skin Narrative: Bilateral lower extremity skin changes consistent with chronic venous stasis, vein varicosities are noted Neuro oriented x3, moves all extremities and no focal motor deficits Speech: speech normal Psych affect normal Psych Narrative: Eye contact is good patient interacts appropriately Weight / BMI Weight Weight: 156.6 kg Body Mass Index (BMI) 49.5 ABG / Lab / Microbiology Data 05/16/24 05:16 05/16/24 05:16 Laboratory: Laboratory Results - last 24 hr 05/16/24 05:16: WBC 9.8, RBC 4.64, Hgb 13.8, Hct 43.9, MCV 94.6 H, MCH 29.7, M CHC 31.4 L, RDW Std Deviation 58.4 H, RDW Coeff of Sean 16.8 H, Plt Count 365, MPV 9.5, Immature Gran % (Auto) 0.400, Neut % (Auto) 65.0, Lymph % (Auto) 21.2, Ector % (Auto) 9.0, Eos % (Auto) 3.7, Baso % (Auto) 0.7, Absolute Neuts (auto) 6.4, Absolute Lymphs (auto) 2.08, Nucleated RBC % 0, Sodium 136, Potassium 3.9, Chloride 101, Carbon Dioxide 29.0, Anion Gap 5, BUN 11, Creatinine 0.95, Estim Creat Clear Calc 138.50, Est GFR (MDRD) Af Amer 108, Est GFR (MDRD) Non-Af 89, BUN/Creatinine Ratio 11.6, Glucose 104, Calcium 9.4 Microbiology: Microbiology 05/12/24 17:45 Urine, Clean Catch Legionella Antigen - Final 05/12/24 17:45 Urine, Clean Catch Streptococcus pneumoniae Antigen (M - Final 05/12/24 10:13 Mucosa - Nose SARS-CoV-2, Influenza & RSV (PCR) - Final Meaningful Use Info Meaningful Use Meaningful Use Diagnoses (Choose all that apply): None applicable Ischemic Stroke Statin Dosing Therapy Reference: STATIN DOSE THERAPY REFERENCE: * Patients > 75 years receive moderate or high dose statin therapy. * Patients 75 years or YOUNGER should receive HIGH intensity statin dose unless contraindicated. You will be required to document reason for non-treatment if statin daily dose does not meet guidelines. HIGH DOSE STATIN THERAPY DAILY Atorvastatin > than or = to 40 mg Rosuvastatin > than or = to 20 mg Amlodipine + Atorvastatin > than or = to 2.5/40 mg Ezetimibe + Simvastatin 10/80 mg Simvastatin 80mg Discharge Plan Admission Admit Date/Time: 05/12/24 11:41 Primary Reason for Your Visit: Shortness of Breath Attending Provider: Steph Freire Primary Care Provider: Care Physician,No Primary Consulting Providers: Felicia Gupta Instructions Additional Instructions / Restrictions: 1. Please take all medications as directed 2. Please follow-up with cardiology as scheduled below 3. Please watch your salt intake and taking in less than 3 g of salt daily -Okay to use sodium chloride substitute with potassium chloride intermittently 4. Please restrict fluid intake to 2 L or less daily 5. Please weigh yourself on a daily basis in the morning with no close on and if you gain more than 2 pounds in a 24-hour period take an extra dose of Lasix and call the options trader office 6. Please call [facility] and schedule appointment as noted below and asked that a basic metabolic profile be done within the next 7 days to check your potassium and kidney function with your new medications Discharge Orders/Prescriptions Prescriptions: New carvedilol 3.125 mg Tablet 3.125 mg PO BID Qty: 60 1RF furosemide 40 mg Tablet 40 mg PO DAILY Qty: 30 1RF levofloxacin 750 mg Tablet 750 mg PO DAILY@0600 Qty: 4 0RF spironolactone 25 mg Tablet 25 mg PO DAILY Qty: 30 1RF Continued lisinopril 20 mg tablet 20 mg PO DAILY Patient Comments: PT STATES HE HASNT BEEN ABLE TO TAKE MED THE PAST COUPLE DAYS BECAUSE HE HAS BEEN PUKING. Referrals / Follow Up: Care Physician,No Primary [Primary Care Provider] - Rebecca Delvalle PA [Med Staff - Adv Practice Prof] - 06/06/24 9:30 am Nichol Sheth [Non-Staff] - In 1 Week (Please call and set up an appointment to be seen within the next week) Disposition Disposition (needs filled in before D/C Order can be placed): Home, Self Care Charges/Coding Visit Charges Inpatient E&M: 06346 Disch Hosp >30min
--- NOTE | 2024-05-16 14:20 | CASEMGMT ---
Patient's discharge medications will cost $49.09. AVI met with patient. AVI explained the cost of his discharge medications. Patient stated he could afford this. AVI called [facility] and asked if they could deliver patient's medications to his room. Samanta BCEK
--- NOTE | 2024-05-16 14:40 | PHA.DC.MC.R ---
Pharmacy [facility] has performed discharge medication reconciliation and counseling for this patient. The patient's discharge medication list was reviewed for discrepancies and discrepancies were resolved. The patient was counseled on the following discharge medications and changes in medications for homegoing were reviewed. The Reason for Use, instructions for use, and potential side effects were reviewed for all new medications. The patient's questions regarding all of their medications were answered. 1. Carvedilol 3.125 mg PO BID 2. Furosemide 40 mg PO daily 3. Levofloxacin 750 mg PO daily x 4 days 4. Spironolactone 25 mg PO daily The patient was able to verbally demonstrate an understanding of their discharge medications. Medications at Discharge Home Medications lisinopril 20 mg tablet 20 mg PO DAILY 05/12/24 carvedilol 3.125 mg tablet 3.125 mg PO BID #60 tabs 05/16/24 furosemide 40 mg tablet 40 mg PO DAILY #30 tabs 05/16/24 levofloxacin 750 mg tablet 750 mg PO DAILY@0600 #4 tabs 05/16/24 spironolactone 25 mg tablet 25 mg PO DAILY #30 tabs 05/16/24
== END 2024-05-16 16:17 | disposition home or self-care (01) | DRG 286 ==
LOC: ED 11:28 → PCU 11:50
PROVIDERS: Admitting Provider Student in an Organized Health Care Education/Training Program; Emergency Provider Emergency Medicine; Visit Provider Internal Medicine
DX: I11.0 Hypertensive heart disease with heart failure (principal); I50.21 Acute systolic (congestive) heart failure; J84.9 Interstitial pulmonary disease, unspecified; Z68.42 Body mass index [BMI] 45.0-49.9, adult; E66.01 Morbid (severe) obesity due to excess calories; I44.7 Left bundle-branch block, unspecified; G47.33 Obstructive sleep apnea (adult) (pediatric); Z66 Do not resuscitate; Z59.71 Insufficient health insurance coverage
CPT/HCPCS: 36415; 71046; 80048; 83880; 84484; 85025; 87449; 87631; 93005; 93306; 93458; 94640; 97802; 99152; 99153; 99285; J7030; Q9957; Q9967; A4216; C1769; C1894; C8929; J1940; J3490

== ENCOUNTER → 2024-08-16 | Outpatient (CLI) | payer OTHER, SELFPAY ==
--- NOTE | 2024-08-16 12:18 | ECHOLC_ITS ---
Reason For Study: Non Ischemic CM Procedure This was a limited 2D transthoracic echocardiogram. Contrast injection was performed. Exam performed in department. Left Ventricle Normal LV size. Mild concentric left ventricular hypertrophy. Left ventricular systolic function is lower limits of normal. The left ventricular ejection fraction is 45 %. There is borderline global hypokinesis of the left ventricle. Right Ventricle Normal RV size. Normal systolic function. Atria Normal left atrium. Normal right atrium. Mitral Valve Mitral valve not well visualized. Tricuspid Valve The tricuspid valve is not well visualized. Aortic Valve Trisinus/trileaflet aortic valve. Pulmonic Valve The pulmonic valve is not well visualized. Great Vessels Normal aortic root. The pulmonary is not well visualized. Pericardium/Pleural No pericardial effusion. Medication Diluted definity 3ml given slow IV push to enhance endocardial definition. MMode/2D Measurements & Calculations LVIDd: 5.7 cm IVSd: 1.2 cm LVIDs: 4.7 cm LVPWd: 1.2 cm LVAd ap4: 44.7 cm2 FS: 16.8 % LVLd ap4: 9.0 cm EDV(MOD-sp4): 184.5 ml EDV(sp4-el): 189.2 ml LVAs ap4: 30.5 cm2 LVLs ap4: 7.6 cm ESV(MOD-sp4): 101.6 ml ESV(sp4-el): 104.5 ml EF(MOD-sp4): 45.0 % EF(sp4-el): 44.8 % SV(MOD-sp4): 83.0 ml SV(sp4-el): 84.7 ml SI(MOD-sp4): 31.9 ml/m2 ECHO/Echo Limited w/Contrast Interpretation Summary Normal LV size. Left ventricular systolic function is lower limits of normal. Mild concentric left ventricular hypertrophy. The left ventricular ejection fraction is 45 %. Contrast injection was performed. Ordering Physician: Angelia Strauss Referring Physician: Angelia Strauss Performed By: Margarita Hancock RDCS, RVT
== END | disposition home or self-care (01) ==
PROVIDERS: Referring Provider Nurse Practitioner Gerontology; Visit Provider Nurse Practitioner Gerontology
DX: I42.8 Other cardiomyopathies (principal)
CPT/HCPCS: 93308; Q9957; A4216; C8924